=== PATIENT | female | born 1955 | race Caucasian/White ===

== ENCOUNTER 2022-12-18 10:57 | Emergency (ER) | payer MEDICARE, BC | END 2022-12-18 13:40 | disposition home or self-care (01) | LOC: JD.ED 10:57 | DX: M25.562 Pain in left knee (principal); F17.210 Nicotine dependence, cigarettes, uncomplicated; Z88.8 Allergy status to other drugs, medicaments and biological substances | CPT/HCPCS: 93971-26-LT; 93971-LT; 99283 ==

== ENCOUNTER → 2023-01-18 | Day surgery (SDC) | payer MEDICARE, BC ==
[~2023-01-18] MED LIST: Acetaminophen/HYDROcodone 325-5 MG Tab PO SCH; Bupivacaine 0.25% 10 ML SDV ONE; Dexamethasone 4 MG/ML 5 ML MDV ONE; EPINEPHrine 1 MG/ML 30 ML MDV IRR SCH; HYDROmorphone 0.5 MG/0.5 ML Syringe IVPUSH PRN; Lactated Ringers 1,000 ML IV SCH; Lidocaine 1% 2 ML ONE; Lidocaine 1%/Sod Bicarbonate in NS 8.4% 1 ML Syringe IDERM PRN; Midazolam 1 MG/ML 2 ML SDV ONE; Ondansetron 4 MG/2 ML SDV IVPUSH PRN; Ondansetron 4 MG/2 ML SDV ONE; Phenylephrine 1% 10 MG/ML SDV ONE; Propofol 200 MG/20 ML SDV ONE; Sodium Chloride 0.9% 10 ML Syringe FLUSH PRN; Sodium Chloride 0.9% 10 ML Syringe FLUSH SCH; ceFAZolin 2 GM Vial ONE; ePHEDrine 50 MG/ML SDV ONE; fentaNYL 100 MCG/2 ML SDV IVPUSH PRN; fentaNYL 100 MCG/2 ML SDV ONE
== END | disposition home or self-care (01) ==
LOC: JD.SDS 06:00
PROVIDERS: ATTEND Orthopaedic Surgery
DX: S83.242A Other tear of medial meniscus, current injury, left knee, initial encounter (principal); M67.52 Plica syndrome, left knee; I12.9 Hypertensive chronic kidney disease with stage 1 through stage 4 chronic kidney disease, or unspecified chronic kidney disease; N18.30 Chronic kidney disease, stage 3 unspecified; E11.22 Type 2 diabetes mellitus with diabetic chronic kidney disease; F41.9 Anxiety disorder, unspecified; G89.29 Other chronic pain; F32.A Depression, unspecified; K21.9 Gastro-esophageal reflux disease without esophagitis; E78.00 Pure hypercholesterolemia, unspecified; E03.9 Hypothyroidism, unspecified; G47.30 Sleep apnea, unspecified; E55.9 Vitamin D deficiency, unspecified; F17.200 Nicotine dependence, unspecified, uncomplicated; G43.909 Migraine, unspecified, not intractable, without status migrainosus; Z88.6 Allergy status to analgesic agent; Z88.1 Allergy status to other antibiotic agents; Z79.899 Other long term (current) drug therapy; Z79.890 Hormone replacement therapy; Z79.84 Long term (current) use of oral hypoglycemic drugs; Z95.5 Presence of coronary angioplasty implant and graft
CPT/HCPCS: 01400; 82947; A9270-GY; J0171; J0690; J1100; J2250; J2370; J2405; J2704; J3010; J3490; J7120

== ENCOUNTER 2024-12-30 07:00 | Day surgery (SDC) | payer MEDICARE, BC ==
[2024-12-30] MEDS ORDERED: fentaNYL 100 MCG/2 ML SDV ONE (07:36)
[2024-12-30] MEDS ORDERED: Midazolam 1 MG/ML 2 ML SDV ONE (07:36)
[2024-12-30] MEDS: oxyCODONE ER 10 MG TAB.ER PO ONE (07:41)
[2024-12-30] MEDS: Pregabalin 25 MG Cap PO ONE (07:41)
[2024-12-30] MEDS: Acetaminophen 325 MG Tab PO ONE ×2 (07:42→13:41)
[2024-12-30] MEDS ORDERED: ceFAZolin 2 GM Vial ONE (08:18)
[2024-12-30] MEDS ORDERED: Ondansetron 4 MG/2 ML SDV ONE (08:18)
[2024-12-30] MEDS: Morphine 8 MG, EPINEPHrine 0.3 MG, Cefuroxime 750 MG, Sodium Chloride 0.9% 7.9 ML PRN (09:23)
[2024-12-30] MEDS: Tranexamic Acid 1,000 MG/10 ML Vial ONE (09:24)
[2024-12-30] MEDS: VANCOmycin 1 GM SDV ONE (09:24)
[2024-12-30] MEDS ORDERED: Acetaminophen/oxyCODONE 325-5 MG Tab PO PRN (09:52)
[2024-12-30] MEDS ORDERED: HYDROmorphone 1 MG/ML Syringe IVPUSH ONE (10:15)
[2024-12-30] MEDS: oxyCODONE 5 MG Tab PO PRN (11:38)
[2024-12-30] MEDS: Metoclopramide 10 MG/2 ML SDV IVPUSH ONE (12:15)
[2024-12-30] MEDS ORDERED: Sodium Chloride 0.9% 10 ML Syringe FLUSH PRN (13:24)
[2024-12-30] MEDS ORDERED: Lactated Ringers 1,000 ML IV SCH (13:30)
[2024-12-30] MEDS ORDERED: Sodium Chloride 0.9% 10 ML Syringe FLUSH SCH (21:00)
== END 2024-12-30 14:47 | disposition home or self-care (01) ==
LOC: JD.SDS 07:00
PROVIDERS: ATTEND Orthopaedic Surgery
DX: M16.12 Unilateral primary osteoarthritis, left hip (principal); E11.9 Type 2 diabetes mellitus without complications; I10 Essential (primary) hypertension; E03.9 Hypothyroidism, unspecified; E78.00 Pure hypercholesterolemia, unspecified; R79.89 Other specified abnormal findings of blood chemistry; Z88.8 Allergy status to other drugs, medicaments and biological substances; Z79.82 Long term (current) use of aspirin; Z79.84 Long term (current) use of oral hypoglycemic drugs; Z79.899 Other long term (current) drug therapy; Z79.890 Hormone replacement therapy; Z87.891 Personal history of nicotine dependence
CPT/HCPCS: 01214; 73501-26-LT; 73501-LT; 97116-GP; 97161-GP; 99100; A9270-GY; C1713; C1776; J0171; J0690; J0697; J1596; J2250; J2272; J2405; J2765; J3010; J3490; J7120